=== PATIENT | female | born 1975 | race Asian ===

== ENCOUNTER 2020-01-26 16:24 | Outpatient (CLI) | payer OTHER ==
[2020-01-26] MEDS ORDERED: OMNIPAQUE 350 MG/ML, 100ML BOTTLE ONE (17:30)
== END 2020-01-26 23:59 | disposition home or self-care (01) ==
LOC: RAD 16:24
PROVIDERS: ATTEND Family Medicine
DX: N85.2 Hypertrophy of uterus (principal)
CPT/HCPCS: 74177; Q9967